=== PATIENT | male | born 1960 | race African-American/Black ===

== ENCOUNTER 2020-10-18 00:03 | Inpatient (IN) | payer MEDICARE ==
[~2020-10-18] VITALS: Ht 190.5 cm; Wt 226.3 kg
[2020-10-18 15:45] VITALS: BP 133/59
[2020-10-18 16:00] VITALS: BP 133/59
[2020-10-18 20:00] VITALS: BP 127/76
[2020-10-18] MEDS: ENOXAPARIN 40MG/0.4ML SYR SUBCUT SCH (20:33)
[2020-10-18] MEDS ORDERED: HYDRALAZINE 20MG/ML VIAL IV PRN (21:45)
[2020-10-18] MEDS ORDERED: DIPHENHYDRAMINE 50MG/ML VIAL IV PRN (21:45)
[2020-10-18] MEDS ORDERED: LORAZEPAM 2MG/ML CPJ IV PRN (21:45)
[2020-10-18] MEDS ORDERED: IPRATROPIUM/ALBUTEROL 0.5-3(2.5)MG/3ML NEB HHN PRN (21:45)
[2020-10-18] MEDS ORDERED: ONDANSETRON HCL 4MG/2ML INJ IV PRN (21:45)
[2020-10-18] MEDS ORDERED: MAGNESIUM/ALUMINUM HYDROXIDE/SIMETHICONE 30ML UDC PO PRN (21:45)
[2020-10-18] MEDS ORDERED: HYDROCODONE/ACETAMINOPHEN 5/325MG TABLET PO PRN (21:45)
[2020-10-18] MEDS ORDERED: GUAIFENESIN 200MG/10ML SUGAR FREE UDC PO PRN (21:45)
[2020-10-19] VITALS: BP 142/79
[2020-10-19] MEDS: CLONIDINE 0.1MG TABLET PO PRN ×3 (02:09→20:48)
[2020-10-19 04:00] VITALS: BP 144/54
[2020-10-19 07:23] LABS: BASOPHILS % 0.8 % (0.0-2.0); EOSINOPHILS % 3.9 % (0.0-5.0); HEMATOCRIT. 32.1 % (42.0-52.0); LYMPHOCYTES % 12.6 % (20.0-50.0); MEAN CORPUSCULAR HEMOGLOBIN 28.1 pg (28.0-32.0); MEAN CORPUSCULAR VOLUME 89.9 fL (80.0-94.0); MEAN PLATELET VOLUME 8.4 fl (7.4-10.4); MONOCYTES % 12.8 % (2.0-8.0); NEUTROPHILS % 69.9 % (40.0-76.0); PLATELET 382 x1000/uL (130-400); RED BLOOD CELL COUNT 3.57 mill/uL (4.7-6.1)
[2020-10-19 08:00] VITALS: BP 172/77
[2020-10-19 10:39] LABS: INR 1.1; PARTIAL THROMBOPLASTIN TIME 35.3 sec (23.4-31.0); PROTHROMBIN TIME 11.4 sec (9.6-11.0)
[2020-10-19 12:00] VITALS: BP 146/67
[2020-10-19 12:16] LABS: HEPATITIS B SURFACE AB < 3.1 mIU/mL
[2020-10-19 12:27] LABS: HEPATITIS B SURFACE ANTIGEN NEGATIVE
[2020-10-19] MEDS ORDERED: LIDOCAINE HCL 1% 20ML VIAL (Pyxis) INJ ONE (12:35)
[2020-10-19 12:56] LABS: HEPATITIS A AB IGM NEGATIVE (NEGATIVE)
[2020-10-19 16:00] VITALS: BP 142/74
[2020-10-19] MEDS: ENOXAPARIN 40MG/0.4ML SYR SUBCUT SCH (17:26)
[2020-10-19 20:00] VITALS: BP 179/69
[2020-10-20] VITALS: BP 165/69
[2020-10-20] MEDS: CLONIDINE 0.1MG TABLET PO PRN (02:55)
[2020-10-20 04:00] VITALS: BP 161/75
[2020-10-20 08:00] VITALS: BP 129/84
[2020-10-20 12:00] VITALS: BP 152/50
[2020-10-20 16:00] VITALS: BP 142/46
[2020-10-20] MEDS: ENOXAPARIN 40MG/0.4ML SYR SUBCUT SCH (18:42)
[2020-10-20 20:00] VITALS: BP 156/89
[2020-10-21] VITALS: BP 132/63
[2020-10-21 04:00] VITALS: BP 170/78
[2020-10-21 06:18] LABS: HEMATOCRIT. 29.6 % (42.0-52.0); HEMOGLOBIN. 9.5 g/dL (14.0-18.0); MEAN CORPUSCULAR HEMOGLOBIN 28.3 pg (28.0-32.0); MEAN CORPUSCULAR VOLUME 88.5 fL (80.0-94.0); MEAN PLATELET VOLUME 8.6 fl (7.4-10.4); PLATELET 308 x1000/uL (130-400); RED BLOOD CELL COUNT 3.35 mill/uL (4.7-6.1); RED CELL DISTRIBUTION WIDTH 14.3 % (11.6-14.6)
[2020-10-21 08:00] VITALS: BP 161/88
[2020-10-21 14:41] LABS: PLATELET ESTIMATE NORMAL
[2020-10-21 20:00] VITALS: BP 142/50
[2020-10-21] MEDS: ENOXAPARIN 40MG/0.4ML SYR SUBCUT SCH (20:10)
[2020-10-22] VITALS: BP 148/76
[2020-10-22 04:00] VITALS: BP 156/75
[2020-10-22] MEDS: CLONIDINE 0.1MG TABLET PO PRN (07:57)
[2020-10-22 08:00] VITALS: BP 206/75
[2020-10-22 12:00] VITALS: BP 167/68
[2020-10-22 16:00] VITALS: BP 135/85
[2020-10-22] MEDS: ENOXAPARIN 40MG/0.4ML SYR SUBCUT SCH (19:07)
[2020-10-22 20:00] VITALS: BP 157/73
[2020-10-23] VITALS: BP 163/67
[2020-10-23] MEDS: CLONIDINE 0.1MG TABLET PO PRN ×2 (02:11→21:00)
[2020-10-23 04:00] VITALS: BP 167/84
[2020-10-23] MEDS ORDERED: BACITRACIN 15GM TUBE TOP ONE (07:45)
[2020-10-23] MEDS ORDERED: HEPARIN SODIUM 1,000 UNIT/1ML VIAL IV ONE ×3 (07:45→10:36)
[2020-10-23] MEDS ORDERED: LIDOCAINE HCL 1% 20ML VIAL (Pyxis) INJ ONE ×2 (07:45→09:43)
[2020-10-23] MEDS ORDERED: BUPIVACAINE HCL 0.5% (5MG/ML) 50ML ONE (07:46)
[2020-10-23] MEDS ORDERED: POLYMYXIN B SULFATE 500000 UNITS/VIAL ONE (07:46)
[2020-10-23 08:00] VITALS: BP 149/80
[2020-10-23 08:39] LABS: HEMATOCRIT. 29.8 % (42.0-52.0); HEMOGLOBIN. 9.7 g/dL (14.0-18.0); MEAN CORPUSCULAR HEMOGLOBIN 28.7 pg (28.0-32.0); MEAN CORPUSCULAR VOLUME 87.9 fL (80.0-94.0); MEAN PLATELET VOLUME 8.3 fl (7.4-10.4); PLATELET 308 x1000/uL (130-400); RED BLOOD CELL COUNT 3.39 mill/uL (4.7-6.1); RED CELL DISTRIBUTION WIDTH 14.4 % (11.6-14.6)
[2020-10-23] MEDS ORDERED: FENTANYL CITRATE/PF 50MCG/ML 2ML VIAL ONE ×2 (09:38→10:27)
[2020-10-23] MEDS ORDERED: MIDAZOLAM HCL 2 MG/2 ML VIAL ONE ×4 (09:38→10:26)
[2020-10-23] MEDS ORDERED: CEFAZOLIN SODIUM 1000MG/VIAL ONE (10:28)
[2020-10-23 12:00] VITALS: BP 125/76
[2020-10-23 13:48] LABS: PLATELET ESTIMATE NORMAL
[2020-10-23 16:00] VITALS: BP 142/64
[2020-10-23] MEDS: ENOXAPARIN 40MG/0.4ML SYR SUBCUT SCH (18:25)
[2020-10-23] MEDS: AMLODIPINE 10MG TABLET PO SCH (18:25)
[2020-10-23 20:00] VITALS: BP 177/77
[2020-10-24] VITALS (9 sets, daily range): BP systolic 150–182; BP diastolic 59–85
[2020-10-24] MEDS: HYDRALAZINE 10 MG in SODIUM CHLORIDE 0.9% 49.5 ML IV PRN (04:52)
[2020-10-24] MEDS: CLONIDINE 0.1MG TABLET PO PRN (05:49)
[2020-10-24] MEDS: HYDRALAZINE HCL 25MG TABLET PO SCH ×2 (09:26→13:16)
[2020-10-24] MEDS: AMLODIPINE 10MG TABLET PO SCH (09:27)
[2020-10-24 11:39] LABS: BASOPHILS % 0.5 % (0.0-2.0); EOSINOPHILS % 2.4 % (0.0-5.0); HEMATOCRIT. 34.7 % (42.0-52.0); HEMOGLOBIN. 10.7 g/dL (14.0-18.0); MEAN CORPUSCULAR HEMOGLOBIN 28.5 pg (28.0-32.0); MEAN CORPUSCULAR VOLUME 92.3 fL (80.0-94.0); MEAN PLATELET VOLUME 7.9 fl (7.4-10.4); MONOCYTES % 9.3 % (2.0-8.0); NEUTROPHILS % 77.8 % (40.0-76.0); PLATELET 302 x1000/uL (130-400); RED BLOOD CELL COUNT 3.76 mill/uL (4.7-6.1); RED CELL DISTRIBUTION WIDTH 14.5 % (11.6-14.6)
[2020-10-24] MEDS ORDERED: HEPARIN SODIUM 1,000 UNIT/1ML VIAL IV ONE (16:00)
[2020-10-24] MEDS: ENOXAPARIN 40MG/0.4ML SYR SUBCUT SCH (18:27)
[2020-10-24 19:54] LABS: CLARITY URINE CLOUDY (CLEAR); COLOR URINE YELLOW (YELLOW); KETONES URINE NEGATIVE (NEGATIVE); LEUKOCYTE ESTERASE URINE 1+ (NEGATIVE); NITRITE URINE NEGATIVE (NEGATIVE); OCCULT BLOOD URINE 1+ (NEGATIVE); PH URINE 7.5 (4.5-8.0); PROTEIN URINE 4+ (NEGATIVE); SPECIFIC GRAVITY URINE 1.024 (1.005-1.030); UROBILINOGEN URINE 0.2 E.U./dL (0.2-1.0)
[2020-10-24] MEDS: HYDRALAZINE HCL 50MG TABLET PO SCH (22:04)
[2020-10-25] VITALS: BP 161/70
[2020-10-25 04:00] VITALS: BP 161/70
[2020-10-25] MEDS: HYDRALAZINE HCL 50MG TABLET PO SCH ×3 (06:20→21:26)
[2020-10-25 06:59] LABS: HEMATOCRIT. 30.7 % (42.0-52.0); HEMOGLOBIN. 9.7 g/dL (14.0-18.0); MEAN CORPUSCULAR HEMOGLOBIN 28.9 pg (28.0-32.0); MEAN CORPUSCULAR VOLUME 91.3 fL (80.0-94.0); MEAN PLATELET VOLUME 8.6 fl (7.4-10.4); PLATELET 239 x1000/uL (130-400); RED BLOOD CELL COUNT 3.36 mill/uL (4.7-6.1); RED CELL DISTRIBUTION WIDTH 14.5 % (11.6-14.6)
[2020-10-25 08:00] VITALS: BP 176/78
[2020-10-25] MEDS: AMLODIPINE 10MG TABLET PO SCH (09:18)
[2020-10-25] MEDS: CLONIDINE 0.1MG TABLET PO PRN ×2 (14:34→22:56)
[2020-10-25 14:53] LABS: PLATELET ESTIMATE NORMAL
[2020-10-25 16:00] VITALS: BP 165/75
[2020-10-25] MEDS: ENOXAPARIN 40MG/0.4ML SYR SUBCUT SCH (17:28)
[2020-10-25 20:55] VITALS: BP 165/64
[2020-10-26] VITALS: BP 176/73
[2020-10-26] MEDS: HYDRALAZINE 10 MG in SODIUM CHLORIDE 0.9% 49.5 ML IV PRN (00:13)
[2020-10-26 04:00] VITALS: BP 162/62
[2020-10-26] MEDS: HYDRALAZINE HCL 50MG TABLET PO SCH ×3 (05:57→22:40)
[2020-10-26 08:00] VITALS: BP 169/78
[2020-10-26] MEDS: AMLODIPINE 10MG TABLET PO SCH (08:42)
[2020-10-26 12:00] VITALS: BP 154/61
[2020-10-26 15:26] LABS: BASOPHILS % 0.8 % (0.0-2.0); EOSINOPHILS % 4.2 % (0.0-5.0); HEMATOCRIT. 31.2 % (42.0-52.0); HEMOGLOBIN. 10.2 g/dL (14.0-18.0); LYMPHOCYTES % 17.8 % (20.0-50.0); MEAN CORPUSCULAR HEMOGLOBIN 28.5 pg (28.0-32.0); MEAN CORPUSCULAR VOLUME 87.3 fL (80.0-94.0); MEAN PLATELET VOLUME 7.7 fl (7.4-10.4); MONOCYTES % 12.9 % (2.0-8.0); NEUTROPHILS % 64.3 % (40.0-76.0); PLATELET 301 x1000/uL (130-400); RED BLOOD CELL COUNT 3.58 mill/uL (4.7-6.1); RED CELL DISTRIBUTION WIDTH 13.6 % (11.6-14.6)
[2020-10-26 16:00] VITALS: BP 145/73
[2020-10-26] MEDS: ENOXAPARIN 40MG/0.4ML SYR SUBCUT SCH (18:10)
[2020-10-26 20:00] VITALS: BP 144/62
[2020-10-27] VITALS: BP 138/70
[2020-10-27 04:00] VITALS: BP 150/68
[2020-10-27] MEDS: HYDRALAZINE HCL 50MG TABLET PO SCH ×3 (06:03→21:19)
[2020-10-27 06:28] LABS: BASOPHILS % 0.6 % (0.0-2.0); EOSINOPHILS % 4.2 % (0.0-5.0); HEMATOCRIT. 32.8 % (42.0-52.0); HEMOGLOBIN. 10.4 g/dL (14.0-18.0); LYMPHOCYTES % 21.5 % (20.0-50.0); MEAN CORPUSCULAR HEMOGLOBIN 28.3 pg (28.0-32.0); MEAN CORPUSCULAR VOLUME 89.2 fL (80.0-94.0); MEAN PLATELET VOLUME 8.5 fl (7.4-10.4); NEUTROPHILS % 59.7 % (40.0-76.0); PLATELET 280 x1000/uL (130-400); RED BLOOD CELL COUNT 3.68 mill/uL (4.7-6.1); RED CELL DISTRIBUTION WIDTH 14.1 % (11.6-14.6)
[2020-10-27] MEDS: AMLODIPINE 10MG TABLET PO SCH (08:49)
[2020-10-27 12:00] VITALS: BP 122/74
[2020-10-27 16:00] VITALS: BP 158/63
[2020-10-27] MEDS: ENOXAPARIN 40MG/0.4ML SYR SUBCUT SCH (18:25)
[2020-10-27 20:00] VITALS: BP 158/56
[2020-10-28] VITALS: BP 162/68
[2020-10-28] MEDS: CLONIDINE 0.1MG TABLET PO PRN (00:10)
[2020-10-28 04:00] VITALS: BP 118/61
[2020-10-28 05:19] LABS: BASOPHILS % 1.1 % (0.0-2.0); EOSINOPHILS % 3.6 % (0.0-5.0); HEMATOCRIT. 28.7 % (42.0-52.0); HEMOGLOBIN. 9.2 g/dL (14.0-18.0); LYMPHOCYTES % 21.5 % (20.0-50.0); MEAN CORPUSCULAR HEMOGLOBIN 28.3 pg (28.0-32.0); MEAN CORPUSCULAR VOLUME 88.1 fL (80.0-94.0); MEAN PLATELET VOLUME 8.2 fl (7.4-10.4); MONOCYTES % 11.8 % (2.0-8.0); PLATELET 267 x1000/uL (130-400); RED BLOOD CELL COUNT 3.26 mill/uL (4.7-6.1)
[2020-10-28] MEDS: HYDRALAZINE HCL 50MG TABLET PO SCH ×3 (05:33→21:56)
[2020-10-28 08:00] VITALS: BP 152/64
[2020-10-28] MEDS: AMLODIPINE 10MG TABLET PO SCH (08:49)
[2020-10-28] MEDS ORDERED: MORPHINE SULFATE 4 MG/ML CPJ (NOT FOR IM USE) IV PRN (09:15)
[2020-10-28 12:00] VITALS: BP 123/69
[2020-10-28 16:00] VITALS: BP 159/54
[2020-10-28] MEDS: ENOXAPARIN 40MG/0.4ML SYR SUBCUT SCH (18:17)
[2020-10-28 20:00] VITALS: BP 146/60
[2020-10-29] VITALS: BP 155/71
[2020-10-29 04:00] VITALS: BP 147/70
[2020-10-29] MEDS: HYDRALAZINE HCL 50MG TABLET PO SCH ×3 (05:35→21:56)
[2020-10-29 08:00] VITALS: BP 156/69
[2020-10-29] MEDS: AMLODIPINE 10MG TABLET PO SCH (09:20)
[2020-10-29 09:50] LABS: BASOPHILS % 1.2 % (0.0-2.0); EOSINOPHILS % 3.8 % (0.0-5.0); HEMATOCRIT. 28.8 % (42.0-52.0); HEMOGLOBIN. 9.4 g/dL (14.0-18.0); LYMPHOCYTES % 23.5 % (20.0-50.0); MEAN CORPUSCULAR HEMOGLOBIN 28.3 pg (28.0-32.0); MEAN CORPUSCULAR VOLUME 87.2 fL (80.0-94.0); MEAN PLATELET VOLUME 7.8 fl (7.4-10.4); MONOCYTES % 12.7 % (2.0-8.0); NEUTROPHILS % 58.8 % (40.0-76.0); PLATELET 287 x1000/uL (130-400); RED CELL DISTRIBUTION WIDTH 13.9 % (11.6-14.6)
[2020-10-29 12:00] VITALS: BP 141/69
[2020-10-29 16:00] VITALS: BP 161/67
[2020-10-29] MEDS: CLONIDINE 0.1MG TABLET PO PRN (18:10)
[2020-10-29] MEDS: ENOXAPARIN 40MG/0.4ML SYR SUBCUT SCH (18:10)
[2020-10-29 20:00] VITALS: BP 160/60
[2020-10-29] MEDS: EPOETIN ALFA-EPBX 10,000 UNIT/ML VIAL SUBCUT SCH (21:56)
[2020-10-30] VITALS: BP 154/63
[2020-10-30 04:00] VITALS: BP 156/64
[2020-10-30] MEDS: HYDRALAZINE HCL 50MG TABLET PO SCH ×3 (06:27→22:58)
[2020-10-30 06:39] LABS: BASOPHILS % 0.6 % (0.0-2.0); EOSINOPHILS % 4.1 % (0.0-5.0); HEMATOCRIT. 28.6 % (42.0-52.0); HEMOGLOBIN. 9.3 g/dL (14.0-18.0); LYMPHOCYTES % 22.5 % (20.0-50.0); MEAN CORPUSCULAR HEMOGLOBIN 28.3 pg (28.0-32.0); MEAN CORPUSCULAR VOLUME 87.1 fL (80.0-94.0); MEAN PLATELET VOLUME 8.2 fl (7.4-10.4); MONOCYTES % 12.6 % (2.0-8.0); NEUTROPHILS % 60.2 % (40.0-76.0); PLATELET 300 x1000/uL (130-400); RED BLOOD CELL COUNT 3.28 mill/uL (4.7-6.1); RED CELL DISTRIBUTION WIDTH 13.9 % (11.6-14.6)
[2020-10-30 08:00] VITALS: BP 150/60
[2020-10-30] MEDS: AMLODIPINE 10MG TABLET PO SCH (09:00)
[2020-10-30 12:00] VITALS: BP 157/59
[2020-10-30 16:00] VITALS: BP 144/62
[2020-10-30] MEDS ORDERED: HEPARIN SODIUM 1,000 UNIT/1ML VIAL IV NR (17:00)
[2020-10-30] MEDS: ENOXAPARIN 40MG/0.4ML SYR SUBCUT SCH (18:02)
[2020-10-30 20:00] VITALS: BP 156/60
[2020-10-31 04:00] VITALS: BP 131/63
[2020-10-31] MEDS: HYDRALAZINE HCL 50MG TABLET PO SCH (06:16)
[2020-10-31 08:00] VITALS: BP 152/65
[2020-10-31] MEDS: AMLODIPINE 10MG TABLET PO SCH (10:04)
[2020-10-31] MEDS: DOCUSATE SODIUM 100MG CAPSULE PO PRN (10:04)
[2020-10-31] MEDS ORDERED: HYDRALAZINE HCL 50MG TABLET PO NR (11:30)
[2020-10-31 12:02] VITALS: BP 154/67
[2020-10-31 16:00] VITALS: BP 100/73
[2020-10-31 16:45] VITALS: BP 151/63
[2020-10-31] MEDS: HYDRALAZINE HCL 100MG TABLET PO SCH (17:34)
[2020-10-31] MEDS: ENOXAPARIN 40MG/0.4ML SYR SUBCUT SCH (17:34)
[2020-10-31 20:00] VITALS: BP 145/61
[2020-10-31] MEDS: EPOETIN ALFA-EPBX 10,000 UNIT/ML VIAL SUBCUT SCH (23:42)
[2020-11-01] VITALS: BP 148/66
[2020-11-01 04:00] VITALS: BP 139/65
[2020-11-01] MEDS: DOCUSATE SODIUM 100MG CAPSULE PO PRN ×2 (06:00→18:04)
[2020-11-01 07:25] LABS: BASOPHILS % 0.7 % (0.0-2.0); EOSINOPHILS % 4.1 % (0.0-5.0); HEMATOCRIT. 29.3 % (42.0-52.0); HEMOGLOBIN. 9.7 g/dL (14.0-18.0); LYMPHOCYTES % 23.6 % (20.0-50.0); MEAN CORPUSCULAR VOLUME 87.4 fL (80.0-94.0); MONOCYTES % 10.9 % (2.0-8.0); NEUTROPHILS % 60.7 % (40.0-76.0); PLATELET 319 x1000/uL (130-400); RED BLOOD CELL COUNT 3.35 mill/uL (4.7-6.1); RED CELL DISTRIBUTION WIDTH 14.2 % (11.6-14.6)
[2020-11-01 08:00] VITALS: BP 168/72
[2020-11-01] MEDS: HYDRALAZINE HCL 100MG TABLET PO SCH ×2 (08:43→18:04)
[2020-11-01] MEDS: AMLODIPINE 10MG TABLET PO SCH (08:43)
[2020-11-01 12:00] VITALS: BP 151/79
[2020-11-01 16:00] VITALS: BP 158/67
[2020-11-01] MEDS: ENOXAPARIN 40MG/0.4ML SYR SUBCUT SCH (18:04)
[2020-11-01 20:00] VITALS: BP 160/65
[2020-11-02] VITALS: BP 158/60
[2020-11-02 04:00] VITALS: BP 155/63
[2020-11-02] MEDS: AMLODIPINE 10MG TABLET PO SCH (09:49)
[2020-11-02] MEDS: HYDRALAZINE HCL 100MG TABLET PO SCH ×2 (09:50→17:16)
[2020-11-02] MEDS: ENOXAPARIN 40MG/0.4ML SYR SUBCUT SCH (17:21)
[2020-11-02] MEDS: DOCUSATE SODIUM 100MG CAPSULE PO PRN (17:23)
[2020-11-02 20:00] VITALS: BP 138/57
[2020-11-02] MEDS: EPOETIN ALFA-EPBX 10,000 UNIT/ML VIAL SUBCUT SCH (21:35)
[2020-11-02] MEDS: CLONIDINE 0.1MG TABLET PO PRN (23:37)
[2020-11-03] VITALS: BP 163/71
[2020-11-03 04:00] VITALS: BP 159/75
[2020-11-03 08:00] VITALS: BP 149/79
[2020-11-03 08:17] LABS: BASOPHILS % 1.2 % (0.0-2.0); EOSINOPHILS % 5.1 % (0.0-5.0); HEMATOCRIT. 29.2 % (42.0-52.0); HEMOGLOBIN. 9.7 g/dL (14.0-18.0); LYMPHOCYTES % 21.5 % (20.0-50.0); MEAN CORPUSCULAR HEMOGLOBIN 28.7 pg (28.0-32.0); MEAN CORPUSCULAR VOLUME 86.5 fL (80.0-94.0); MEAN PLATELET VOLUME 7.3 fl (7.4-10.4); NEUTROPHILS % 59.2 % (40.0-76.0); PLATELET 355 x1000/uL (130-400); RED BLOOD CELL COUNT 3.37 mill/uL (4.7-6.1)
[2020-11-03] MEDS: HYDRALAZINE HCL 100MG TABLET PO SCH ×2 (09:00→17:00)
[2020-11-03] MEDS: AMLODIPINE 10MG TABLET PO SCH (09:00)
[2020-11-03 16:00] VITALS: BP 128/80
[2020-11-03] MEDS: CLONIDINE 0.1MG TABLET PO SCH ×2 (18:00→21:45)
[2020-11-03] MEDS: ENOXAPARIN 40MG/0.4ML SYR SUBCUT SCH (19:01)
[2020-11-03 20:00] VITALS: BP 106/67
[2020-11-04] VITALS: BP 157/71
[2020-11-04] MEDS: ACETAMINOPHEN 325MG TABLET PO PRN (03:30)
[2020-11-04 04:00] VITALS: BP 124/61
[2020-11-04] MEDS: CLONIDINE 0.1MG TABLET PO SCH ×3 (06:24→21:54)
[2020-11-04 08:00] VITALS: BP 130/58
[2020-11-04] MEDS: HYDRALAZINE HCL 100MG TABLET PO SCH ×2 (09:25→18:11)
[2020-11-04] MEDS: AMLODIPINE 10MG TABLET PO SCH (09:25)
[2020-11-04 09:31] LABS: EOSINOPHILS % 6.4 % (0.0-5.0); HEMATOCRIT. 30.1 % (42.0-52.0); HEMOGLOBIN. 9.9 g/dL (14.0-18.0); LYMPHOCYTES % 21.8 % (20.0-50.0); MEAN CORPUSCULAR VOLUME 88.2 fL (80.0-94.0); MEAN PLATELET VOLUME 8.4 fl (7.4-10.4); MONOCYTES % 12.5 % (2.0-8.0); NEUTROPHILS % 58.3 % (40.0-76.0); PLATELET 350 x1000/uL (130-400); RED BLOOD CELL COUNT 3.42 mill/uL (4.7-6.1); RED CELL DISTRIBUTION WIDTH 14.5 % (11.6-14.6)
[2020-11-04 12:00] VITALS: BP 146/60
[2020-11-04 16:00] VITALS: BP 164/69
[2020-11-04] MEDS: ENOXAPARIN 40MG/0.4ML SYR SUBCUT SCH (18:15)
[2020-11-04 20:00] VITALS: BP 138/59
[2020-11-05] VITALS: BP 142/69
[2020-11-05 04:00] VITALS: BP 146/61
[2020-11-05] MEDS: CLONIDINE 0.1MG TABLET PO SCH ×3 (06:38→22:00)
[2020-11-05 08:00] VITALS: BP 128/57
[2020-11-05] MEDS: HYDRALAZINE HCL 100MG TABLET PO SCH ×2 (09:52→17:41)
[2020-11-05] MEDS: AMLODIPINE 10MG TABLET PO SCH (09:53)
[2020-11-05 12:00] VITALS: BP 134/60
[2020-11-05 12:21] LABS: BASOPHILS % 1.1 % (0.0-2.0); EOSINOPHILS % 6.4 % (0.0-5.0); HEMATOCRIT. 31.3 % (42.0-52.0); HEMOGLOBIN. 10.1 g/dL (14.0-18.0); LYMPHOCYTES % 19.8 % (20.0-50.0); MEAN CORPUSCULAR HEMOGLOBIN 28.5 pg (28.0-32.0); MEAN CORPUSCULAR VOLUME 88.1 fL (80.0-94.0); MEAN PLATELET VOLUME 7.9 fl (7.4-10.4); MONOCYTES % 10.4 % (2.0-8.0); NEUTROPHILS % 62.3 % (40.0-76.0); PLATELET 387 x1000/uL (130-400); RED BLOOD CELL COUNT 3.55 mill/uL (4.7-6.1); RED CELL DISTRIBUTION WIDTH 14.5 % (11.6-14.6)
[2020-11-05 16:00] VITALS: BP 135/56
[2020-11-05] MEDS: ENOXAPARIN 40MG/0.4ML SYR SUBCUT SCH (17:41)
[2020-11-05 20:00] VITALS: BP 124/53
[2020-11-06] VITALS: BP 104/67
[2020-11-06 04:00] VITALS: BP 138/78
[2020-11-06] MEDS: CLONIDINE 0.1MG TABLET PO SCH ×3 (06:00→22:00)
[2020-11-06 06:39] LABS: BASOPHILS % 0.8 % (0.0-2.0); EOSINOPHILS % 4.3 % (0.0-5.0); HEMATOCRIT. 31.7 % (42.0-52.0); HEMOGLOBIN. 10.1 g/dL (14.0-18.0); LYMPHOCYTES % 18.2 % (20.0-50.0); MEAN CORPUSCULAR HEMOGLOBIN 28.5 pg (28.0-32.0); MEAN CORPUSCULAR VOLUME 89.2 fL (80.0-94.0); MEAN PLATELET VOLUME 8.1 fl (7.4-10.4); MONOCYTES % 10.9 % (2.0-8.0); NEUTROPHILS % 65.8 % (40.0-76.0); PLATELET 355 x1000/uL (130-400); RED BLOOD CELL COUNT 3.56 mill/uL (4.7-6.1); RED CELL DISTRIBUTION WIDTH 14.5 % (11.6-14.6)
[2020-11-06 08:00] VITALS: BP 132/61
[2020-11-06] MEDS: AMLODIPINE 10MG TABLET PO SCH (08:52)
[2020-11-06] MEDS: HYDRALAZINE HCL 100MG TABLET PO SCH ×2 (08:52→17:00)
[2020-11-06 12:00] VITALS: BP 108/50
[2020-11-06 16:00] VITALS: BP 121/53
[2020-11-06] MEDS: ENOXAPARIN 40MG/0.4ML SYR SUBCUT SCH (18:51)
[2020-11-06 20:00] VITALS: BP 148/58
[2020-11-06] MEDS ORDERED: HEPARIN SODIUM 1,000 UNIT/1ML VIAL IV NR (21:15)
[2020-11-06] MEDS: DOCUSATE SODIUM 100MG CAPSULE PO PRN (23:12)
[2020-11-07] VITALS: BP 128/77
[2020-11-07 04:00] VITALS: BP 151/70
[2020-11-07] MEDS: CLONIDINE 0.1MG TABLET PO SCH ×3 (06:29→22:00)
[2020-11-07 08:00] VITALS: BP 136/60
[2020-11-07] MEDS: AMLODIPINE 10MG TABLET PO SCH (09:46)
[2020-11-07] MEDS: HYDRALAZINE HCL 100MG TABLET PO SCH ×2 (09:46→17:13)
[2020-11-07 12:00] VITALS: BP 115/48
[2020-11-07] MEDS: ACETAMINOPHEN 325MG TABLET PO PRN (13:30)
[2020-11-07 16:00] VITALS: BP 116/50
[2020-11-07] MEDS: ENOXAPARIN 40MG/0.4ML SYR SUBCUT SCH (17:14)
[2020-11-07 20:00] VITALS: BP 117/53
[2020-11-07] MEDS: DOCUSATE SODIUM 100MG CAPSULE PO PRN (22:27)
[2020-11-08] VITALS (8 sets, daily range): BP systolic 122–161; BP diastolic 58–70
[2020-11-08] MEDS: CLONIDINE 0.1MG TABLET PO SCH ×2 (05:37→19:13)
[2020-11-08 07:20] LABS: BASOPHILS % 0.6 % (0.0-2.0); EOSINOPHILS % 7.1 % (0.0-5.0); HEMATOCRIT. 32.1 % (42.0-52.0); HEMOGLOBIN. 10.3 g/dL (14.0-18.0); LYMPHOCYTES % 18.5 % (20.0-50.0); MEAN CORPUSCULAR HEMOGLOBIN 28.4 pg (28.0-32.0); MEAN CORPUSCULAR VOLUME 88.2 fL (80.0-94.0); MEAN PLATELET VOLUME 7.5 fl (7.4-10.4); MONOCYTES % 11.7 % (2.0-8.0); NEUTROPHILS % 62.1 % (40.0-76.0); PLATELET 366 x1000/uL (130-400); RED BLOOD CELL COUNT 3.64 mill/uL (4.7-6.1); RED CELL DISTRIBUTION WIDTH 14.5 % (11.6-14.6)
[2020-11-08] MEDS: HYDRALAZINE HCL 100MG TABLET PO SCH ×2 (09:00→17:54)
[2020-11-08] MEDS: AMLODIPINE 10MG TABLET PO SCH (09:00)
[2020-11-08] MEDS: ENOXAPARIN 40MG/0.4ML SYR SUBCUT SCH (17:55)
== END 2020-11-08 20:49 | DRG 299 ==
LOC: ER 00:03 → 6EST 11:35 → EDBEDREQTM 11:46 → EDBEDREQSVC 11:46 → EDBEDREQ 11:46 → EDBEDREQSVC 11:55 → EDBEDREQ 12:52 → ENRESERV 14:58 → 6EST 10-26 00:12
PROVIDERS: ADMIT Internal Medicine; ATTEND Internal Medicine
PROC: B548ZZA Ultrasonography of Superior Vena Cava, Guidance (ICD-10-PCS; 2020-10-19)
PROC: 02HV33Z Insertion of Infusion Device into Superior Vena Cava, Percutaneous Approach (ICD-10-PCS; 2020-10-19)
PROC: 5A1D70Z Performance of Urinary Filtration, Intermittent, Less than 6 Hours Per Day (ICD-10-PCS; 2020-10-19)
PROC: 5A1D70Z Performance of Urinary Filtration, Intermittent, Less than 6 Hours Per Day (ICD-10-PCS; 2020-10-20)
PROC: 5A1D70Z Performance of Urinary Filtration, Intermittent, Less than 6 Hours Per Day (ICD-10-PCS; 2020-10-21)
PROC: 0JH63XZ Insertion of Tunneled Vascular Access Device into Chest Subcutaneous Tissue and Fascia, Percutaneous Approach (ICD-10-PCS; principal; 2020-10-23)
PROC: 02H633Z Insertion of Infusion Device into Right Atrium, Percutaneous Approach (ICD-10-PCS; 2020-10-23)
PROC: B5181ZA Fluoroscopy of Superior Vena Cava using Low Osmolar Contrast, Guidance (ICD-10-PCS; 2020-10-23)
PROC: 5A1D70Z Performance of Urinary Filtration, Intermittent, Less than 6 Hours Per Day (ICD-10-PCS; 2020-10-23)
PROC: 5A1D70Z Performance of Urinary Filtration, Intermittent, Less than 6 Hours Per Day (ICD-10-PCS; 2020-10-24)
PROC: 5A1D70Z Performance of Urinary Filtration, Intermittent, Less than 6 Hours Per Day (ICD-10-PCS; 2020-10-26)
PROC: 5A1D70Z Performance of Urinary Filtration, Intermittent, Less than 6 Hours Per Day (ICD-10-PCS; 2020-10-28)
PROC: 5A1D70Z Performance of Urinary Filtration, Intermittent, Less than 6 Hours Per Day (ICD-10-PCS; 2020-10-29)
PROC: 5A1D70Z Performance of Urinary Filtration, Intermittent, Less than 6 Hours Per Day (ICD-10-PCS; 2020-11-01)
PROC: 5A1D70Z Performance of Urinary Filtration, Intermittent, Less than 6 Hours Per Day (ICD-10-PCS; 2020-11-03)
PROC: 5A1D70Z Performance of Urinary Filtration, Intermittent, Less than 6 Hours Per Day (ICD-10-PCS; 2020-11-06)
PROC: 5A1D70Z Performance of Urinary Filtration, Intermittent, Less than 6 Hours Per Day (ICD-10-PCS; 2020-11-08)
DX: E11.51 Type 2 diabetes mellitus with diabetic peripheral angiopathy without gangrene (principal); J96.00 Acute respiratory failure, unspecified whether with hypoxia or hypercapnia; N18.6 End stage renal disease; I13.2 Hypertensive heart and chronic kidney disease with heart failure and with stage 5 chronic kidney disease, or end stage renal disease; E46 Unspecified protein-calorie malnutrition; N17.9 Acute kidney failure, unspecified; R65.10 Systemic inflammatory response syndrome (SIRS) of non-infectious origin without acute organ dysfunction; L97.909 Non-pressure chronic ulcer of unspecified part of unspecified lower leg with unspecified severity; I87.313 Chronic venous hypertension (idiopathic) with ulcer of bilateral lower extremity; Z68.44 Body mass index [BMI] 60.0-69.9, adult; N39.0 Urinary tract infection, site not specified; E11.622 Type 2 diabetes mellitus with other skin ulcer; I50.9 Heart failure, unspecified; R26.81 Unsteadiness on feet; E11.22 Type 2 diabetes mellitus with diabetic chronic kidney disease; E66.01 Morbid (severe) obesity due to excess calories; G89.29 Other chronic pain; I87.2 Venous insufficiency (chronic) (peripheral); I87.8 Other specified disorders of veins; M54.9 Dorsalgia, unspecified; Z20.822 Contact with and (suspected) exposure to COVID-19; D64.9 Anemia, unspecified; E78.5 Hyperlipidemia, unspecified; M48.00 Spinal stenosis, site unspecified; Z99.2 Dependence on renal dialysis; M25.552 Pain in left hip
CPT/HCPCS: 36415; 36556; 71045; 76000; 76937; 80048; 81003; 83880; 84443; 84484; 85025; 86705; 86706; 86709; 86803; 87340; 87426; 88300; 93005; 97022; 97110; 97116; 97162; 97530; 99285; C1752; C1769; C1887; J0360; J0690; J0885; J1642; J1644; J1650; J2250; J3010; J3490; U0003

== ENCOUNTER 2024-11-03 09:09 | Inpatient (IN) | payer MEDICAID, MEDICARE ==
[~2024-11-03] VITALS: Ht 182.9 cm; Wt 168.5 kg
[2024-11-03] VITALS (10 sets, daily range): BP systolic 104–174; BP diastolic 58–78; PULSE 62–98; RESP 18–21; TEMP 36.6696–36.9; O2SAT 93–100
[2024-11-03 09:46] LABS: BASOPHILS % 1.1 % (0.0-2.0); EOSINOPHILS % 1.6 % (0.0-5.0); HEMATOCRIT. 34.2 % (42.0-52.0); HEMOGLOBIN. 11.3 g/dL (14.0-18.0); LYMPHOCYTES % 10.8 % (20.0-50.0); MEAN CORPUSCULAR HEMOGLOBIN 31.5 pg (28.0-32.0); MEAN CORPUSCULAR VOLUME 95.4 fL (80.0-94.0); MEAN PLATELET VOLUME 6.7 fl (7.4-10.4); NEUTROPHILS % 75.5 % (40.0-76.0); PLATELET 351 x1000/uL (130-400); RED BLOOD CELL COUNT 3.58 mill/uL (4.7-6.1); RED CELL DISTRIBUTION WIDTH 18.3 % (11.6-14.6); WHITE BLOOD COUNT 10.3 x1000/uL (4.5-11.0)
[2024-11-03 09:54] LABS: CHLORIDE 104 mEq/L (98-107); SODIUM 141 mEq/L (136-145)
[2024-11-03 09:56] LABS: CALCIUM 8.5 mg/dL (8.7-10.4); CARBON DIOXIDE 19 mEq/L (21-32)
[2024-11-03 10:00] LABS: GLUCOSE 132 mg/dL (70-105)
[2024-11-03 10:02] LABS: TROPONIN I HIGH SENSITIVITY 18 ng/L (3.0-53)
[2024-11-03 10:26] LABS: CREATININE 17.7 mg/dL (0.6-1.3); POTASSIUM 6.5 mEq/L (3.5-5.1); UREA NITROGEN BLOOD 130 mg/dL (9-23)
[2024-11-03] MEDS: INSULIN REGULAR (HUMULIN R) 1000UNITS/10ML VIAL IV ONE (11:08)
[2024-11-03] MEDS: CALCIUM CHLORIDE 1GM/10ML SYR IV ONE (11:08)
[2024-11-03] MEDS: DEXTROSE 50% WATER 50ML SYRINGE IV ONE (11:09)
[2024-11-03] MEDS: SODIUM BICARBONATE 8.4% 50MEQ/50ML SYR IV ONE (11:09)
[2024-11-03] MEDS: FUROSEMIDE 100MG/10ML VIAL IV STA (11:09)
[2024-11-03] MEDS: ALBUTEROL (0.083%) 2.5MG/3ML NEB HHN ONE (11:15)
[2024-11-03 12:25] LABS: HEPATITIS B SURFACE ANTIGEN NEGATIVE (Negative)
[2024-11-03] MEDS ORDERED: IPRATROPIUM/ALBUTEROL 0.5-3(2.5)MG/3ML NEB HHN PRN (12:45)
[2024-11-03] MEDS ORDERED: ONDANSETRON HCL 4MG/2ML INJ IV PRN (12:45)
[2024-11-03 12:46] LABS: HEPATITIS A AB IGM NEGATIVE (Negative)
[2024-11-03 12:47] LABS: HEPATITIS B CORE AB IGM NEGATIVE (Negative); HEPATITIS C AB NON REACTIVE (Neg) (Negative)
[2024-11-03] MEDS: ENOXAPARIN 40MG/0.4ML SYR SUBCUT SCH (13:00)
[2024-11-03] MEDS: ACETAMINOPHEN 325MG TABLET PO PRN (17:12)
[2024-11-03] MEDS: CLONIDINE 0.1MG TABLET PO PRN (21:01)
[2024-11-03] MEDS: TRAMADOL 50MG TABLET PO PRN (21:02)
[2024-11-04 03:57] VITALS: BP 111/61; PULSE 67; RESP 19; TEMP 36.6; O2SAT 96
[2024-11-04 08:00] VITALS: BP 126/70; PULSE 63; RESP 20; TEMP 36.4; O2SAT 100
[2024-11-04] MEDS: PANTOPRAZOLE SODIUM 40 MG/VIAL IV SCH (09:26)
[2024-11-04 12:00] VITALS: BP 111/67; PULSE 65; RESP 20; TEMP 36.6; O2SAT 100
[2024-11-04 16:00] VITALS: BP 106/55; PULSE 67; RESP 18; TEMP 36.8; O2SAT 100
[2024-11-04 20:00] VITALS: BP 110/59; PULSE 77; RESP 20; TEMP 36.4; O2SAT 100
[2024-11-05] VITALS (16 sets, daily range): BP systolic 76–130; BP diastolic 34–71; PULSE 57–77; RESP 18–20; TEMP 36.4–37.2; O2SAT 97–100
[2024-11-05] MEDS ORDERED: HEPARIN SODIUM 1,000 UNIT/1ML VIAL IV SCH (11:00)
[2024-11-05 12:23] LABS: BASOPHILS % 0.8 % (0.0-2.0); EOSINOPHILS % 3.1 % (0.0-5.0); HEMATOCRIT. 27.4 % (42.0-52.0); HEMOGLOBIN. 9.2 g/dL (14.0-18.0); LYMPHOCYTES % 12.3 % (20.0-50.0); MEAN CORPUSCULAR HEMOGLOBIN 31.6 pg (28.0-32.0); MEAN CORPUSCULAR HGB CONC 33.7 g/dL (31.0-37.0); MEAN CORPUSCULAR VOLUME 93.9 fL (80.0-94.0); MEAN PLATELET VOLUME 6.6 fl (7.4-10.4); MONOCYTES % 9.1 % (2.0-8.0); NEUTROPHILS % 74.7 % (40.0-76.0); PLATELET 218 x1000/uL (130-400); RED BLOOD CELL COUNT 2.92 mill/uL (4.7-6.1); RED CELL DISTRIBUTION WIDTH 18.4 % (11.6-14.6); WHITE BLOOD COUNT 9.6 x1000/uL (4.5-11.0)
[2024-11-05 12:46] LABS: CARBON DIOXIDE 25 mEq/L (21-32); CHLORIDE 103 mEq/L (98-107); POTASSIUM 4.3 mEq/L (3.5-5.1); SODIUM 142 mEq/L (136-145)
[2024-11-05 12:47] LABS: CALCIUM 7.4 mg/dL (8.7-10.4)
[2024-11-05 12:51] LABS: GLUCOSE 135 mg/dL (70-105); IRON 35 ug/dL (65-175)
[2024-11-05 12:52] LABS: UREA NITROGEN BLOOD 68 mg/dL (9-23)
[2024-11-05 12:54] LABS: PHOSPHORUS 3.1 mg/dL (2.5-4.9); TOTAL IRON BINDING CAPACITY 360 ug/dl (250-425)
[2024-11-05 12:59] LABS: CREATININE 10.8 mg/dL (0.6-1.3)
[2024-11-05] MEDS: FERROUS SULFATE 325MG TABLET PO SCH (18:34)
[2024-11-06] VITALS (15 sets, daily range): BP systolic 80–118; BP diastolic 30–84; PULSE 71–80; RESP 18–20; TEMP 36.3–36.72516; O2SAT 97–100
[2024-11-06 06:12] LABS: CHLORIDE 102 mEq/L (98-107); SODIUM 138 mEq/L (136-145)
[2024-11-06 06:13] LABS: BASOPHILS % 0.7 % (0.0-2.0); CARBON DIOXIDE 17 mEq/L (21-32); EOSINOPHILS % 2.8 % (0.0-5.0); HEMATOCRIT. 30.5 % (42.0-52.0); HEMOGLOBIN. 10.3 g/dL (14.0-18.0); LYMPHOCYTES % 13.5 % (20.0-50.0); MEAN CORPUSCULAR HEMOGLOBIN 31.5 pg (28.0-32.0); MEAN CORPUSCULAR HGB CONC 33.7 g/dL (31.0-37.0); MEAN CORPUSCULAR VOLUME 93.5 fL (80.0-94.0); MEAN PLATELET VOLUME 7.4 fl (7.4-10.4); MONOCYTES % 12.3 % (2.0-8.0); NEUTROPHILS % 70.7 % (40.0-76.0); PLATELET 254 x1000/uL (130-400); RED BLOOD CELL COUNT 3.26 mill/uL (4.7-6.1); RED CELL DISTRIBUTION WIDTH 18.2 % (11.6-14.6); WHITE BLOOD COUNT 9.6 x1000/uL (4.5-11.0)
[2024-11-06 06:14] LABS: CALCIUM 7.7 mg/dL (8.7-10.4)
[2024-11-06 06:18] LABS: GLUCOSE 92 mg/dL (70-105)
[2024-11-06 06:21] LABS: PHOSPHORUS 5.9 mg/dL (2.5-4.9)
[2024-11-06 06:37] LABS: CREATININE 18.3 mg/dL (0.6-1.3); UREA NITROGEN BLOOD 115 mg/dL (9-23)
[2024-11-06 07:54] LABS: POTASSIUM 7.3 mEq/L (3.5-5.1)
[2024-11-06] MEDS ORDERED: ALBUTEROL (0.083%) 2.5MG/3ML NEB HHN NR (08:15)
[2024-11-06] MEDS: SODIUM BICARBONATE 8.4% 50MEQ/50ML SYR IV NR (09:27)
[2024-11-06] MEDS: CALCIUM GLUCONATE 100MG/ML 10ML VIAL IV NR (09:28)
[2024-11-06] MEDS: SODIUM ZIRCONIUM CYCLOSILICATE 10GM/PACKET PO NR (09:29)
[2024-11-06 18:21] LABS: T4 FREE 1.32 ng/dL (0.89-1.76); THYROID STIMULATING HORMONE 2.06 uIU/mL (0.55-4.78)
[2024-11-06 18:22] LABS: FOLIC ACID (FOLATE) SERUM > 20.00 ng/mL (>5.38); VITAMIN B12 SERUM 1044 pg/mL (211-911)
[2024-11-06 19:50] LABS: POTASSIUM 5.7 mEq/L (3.5-5.1)
[2024-11-06 19:51] LABS: CALCIUM 7.6 mg/dL (8.7-10.4)
[2024-11-06 20:31] LABS: CREATININE 16.3 mg/dL (0.6-1.3)
[2024-11-07] VITALS (13 sets, daily range): BP systolic 83–133; BP diastolic 49–71; PULSE 69–88; RESP 18–22; TEMP 36.1–36.9; O2SAT 97–100
[2024-11-07] MEDS ORDERED: HEPARIN SODIUM 1,000 UNIT/1ML VIAL IV PRN (08:30)
[2024-11-07 21:29] LABS: BASOPHILS % 0.8 % (0.0-2.0); EOSINOPHILS % 2.5 % (0.0-5.0); HEMOGLOBIN. 10.1 g/dL (14.0-18.0); MEAN CORPUSCULAR HEMOGLOBIN 31.7 pg (28.0-32.0); MEAN CORPUSCULAR HGB CONC 33.8 g/dL (31.0-37.0); MEAN CORPUSCULAR VOLUME 93.8 fL (80.0-94.0); MEAN PLATELET VOLUME 7.7 fl (7.4-10.4); MONOCYTES % 14.1 % (2.0-8.0); NEUTROPHILS % 70.6 % (40.0-76.0); PLATELET 261 x1000/uL (130-400); RED CELL DISTRIBUTION WIDTH 17.5 % (11.6-14.6); WHITE BLOOD COUNT 9.8 x1000/uL (4.5-11.0)
[2024-11-07 21:46] LABS: CHLORIDE 101 mEq/L (98-107); POTASSIUM 5.3 mEq/L (3.5-5.1); SODIUM 141 mEq/L (136-145)
[2024-11-07 21:47] LABS: CALCIUM 7.5 mg/dL (8.7-10.4); CARBON DIOXIDE 23 mEq/L (21-32)
[2024-11-07 21:52] LABS: GLUCOSE 206 mg/dL (70-105)
[2024-11-07 21:53] LABS: UREA NITROGEN BLOOD 85 mg/dL (9-23)
[2024-11-07 21:54] LABS: PHOSPHORUS 5.8 mg/dL (2.5-4.9)
[2024-11-07 21:57] LABS: CREATININE 14.5 mg/dL (0.6-1.3)
[2024-11-08] VITALS: BP 114/77; PULSE 79; RESP 21; TEMP 36.8; O2SAT 97
[2024-11-08 04:00] VITALS: BP 106/50; PULSE 74; RESP 21; TEMP 36.6; O2SAT 96
[2024-11-08 08:00] VITALS: BP 78/36; PULSE 76; RESP 18; TEMP 36.2; O2SAT 95
[2024-11-08] MEDS: PANTOPRAZOLE 40MG DR TABLET PO SCH (08:51)
[2024-11-08] MEDS ORDERED: LORAZEPAM 2MG/ML INJ IV PRN (16:15)
[2024-11-08] MEDS ORDERED: LORAZEPAM 2MG/ML UD SYRINGE IV PRN (16:15)
[2024-11-08] MEDS: TRAMADOL 50MG TABLET PO PRN (16:21)
[2024-11-08] MEDS: CEFAZOLIN 1000MG PREMIX 50ML IV SCH (16:42)
[2024-11-08 20:00] VITALS: BP 98/55; PULSE 76; RESP 18; TEMP 36.6; O2SAT 97
[2024-11-08] MEDS ORDERED: CEFAZOLIN SODIUM 1000MG/VIAL IV SCH (22:00)
[2024-11-09] VITALS (16 sets, daily range): BP systolic 117–153; BP diastolic 62–82; PULSE 64–101; RESP 16–21; TEMP 36.2–36.7; O2SAT 95–100
[2024-11-09 11:28] LABS: CHLORIDE 99 mEq/L (98-107); SODIUM 137 mEq/L (136-145)
[2024-11-09 11:29] LABS: CALCIUM 7.4 mg/dL (8.7-10.4); CARBON DIOXIDE 27 mEq/L (21-32)
[2024-11-09 11:34] LABS: GLUCOSE 130 mg/dL (70-105); UREA NITROGEN BLOOD 41 mg/dL (9-23)
[2024-11-09 11:36] LABS: PHOSPHORUS 3.1 mg/dL (2.5-4.9)
[2024-11-09 12:03] LABS: HEMATOCRIT 29.8 % (42.0-52.0); HEMOGLOBIN 9.8 g/dL (14.0-18.0); MEAN CORPUSCULAR HEMOGLOBIN 30.9 pg (28.0-32.0); MEAN CORPUSCULAR HGB CONC 32.8 g/dL (31.0-37.0); MEAN CORPUSCULAR VOLUME 94.1 fL (80.0-94.0); PLATELET 236 x1000/uL (130-400); RED BLOOD CELL COUNT 3.17 mill/uL (4.7-6.1); RED CELL DISTRIBUTION WIDTH 17.1 % (11.6-14.6); WHITE BLOOD COUNT 9.8 x1000/uL (4.5-11.0)
[2024-11-09 12:19] LABS: CREATININE 7.8 mg/dL (0.6-1.3)
[2024-11-09 12:21] LABS: POTASSIUM 2.7 mEq/L (3.5-5.1)
[2024-11-09 18:58] LABS: POTASSIUM 5.8 mEq/L (3.5-5.1)
[2024-11-09] MEDS: SODIUM POLYSTYRENE SULFONATE 15 G/60 ML BOT PO NR (20:17)
[2024-11-10] VITALS: BP 105/50; PULSE 73; RESP 20; TEMP 36.4; O2SAT 99
[2024-11-10 04:00] VITALS: BP_SYST 81; BP_SYST 96; BP_DIAS 40; BP_DIAS 57; PULSE 79; RESP 20; TEMP 37.2; O2SAT 98
[2024-11-10 08:40] VITALS: BP 103/56; PULSE 80; RESP 18; TEMP 37.2; O2SAT 97
[2024-11-10] MEDS ORDERED: LIDOCAINE HCL 1% 10 MG/ML 10ML VIAL ONE (08:59)
[2024-11-10 13:15] VITALS: BP 110/66; PULSE 63; RESP 18; TEMP 36.5; O2SAT 100
[2024-11-10 16:29] VITALS: BP 128/72; PULSE 77; RESP 20; TEMP 37.2; O2SAT 98
[2024-11-10 18:05] LABS: HEMATOCRIT 31.7 % (42.0-52.0); HEMOGLOBIN 10.5 g/dL (14.0-18.0); MEAN CORPUSCULAR HGB CONC 33.2 g/dL (31.0-37.0); MEAN CORPUSCULAR VOLUME 93.3 fL (80.0-94.0); PLATELET 332 x1000/uL (130-400); RED CELL DISTRIBUTION WIDTH 16.7 % (11.6-14.6); WHITE BLOOD COUNT 11.6 x1000/uL (4.5-11.0)
[2024-11-10 18:13] LABS: CALCIUM 7.3 mg/dL (8.7-10.4); CARBON DIOXIDE 22 mEq/L (21-32); CHLORIDE 98 mEq/L (98-107); POTASSIUM 4.7 mEq/L (3.5-5.1); SODIUM 137 mEq/L (136-145)
[2024-11-10 18:17] LABS: GLUCOSE 154 mg/dL (70-105)
[2024-11-10 18:19] LABS: UREA NITROGEN BLOOD 96 mg/dL (9-23)
[2024-11-10 18:20] LABS: PHOSPHORUS 7.7 mg/dL (2.5-4.9)
[2024-11-10 18:25] LABS: CREATININE 16.6 mg/dL (0.6-1.3)
[2024-11-10 19:57] VITALS: BP 140/87; PULSE 74; RESP 20; TEMP 36.6; O2SAT 95
[2024-11-10] MEDS: VANCOMYCIN 2GM PMX (XELLIA) 400 ML IV SCH (20:52)
[2024-11-11] VITALS (14 sets, daily range): BP systolic 101–180; BP diastolic 50–86; PULSE 73–85; RESP 18–20; TEMP 36.114–37.3; O2SAT 97–100
[2024-11-11 07:48] LABS: BASOPHILS % 0.6 % (0.0-2.0); EOSINOPHILS % 1.9 % (0.0-5.0); HEMATOCRIT. 29.3 % (42.0-52.0); HEMOGLOBIN. 9.6 g/dL (14.0-18.0); LYMPHOCYTES % 10.5 % (20.0-50.0); MEAN CORPUSCULAR HEMOGLOBIN 30.4 pg (28.0-32.0); MEAN CORPUSCULAR HGB CONC 32.8 g/dL (31.0-37.0); MEAN CORPUSCULAR VOLUME 92.7 fL (80.0-94.0); MEAN PLATELET VOLUME 7.5 fl (7.4-10.4); MONOCYTES % 13.3 % (2.0-8.0); NEUTROPHILS % 73.7 % (40.0-76.0); PLATELET 292 x1000/uL (130-400); RED BLOOD CELL COUNT 3.16 mill/uL (4.7-6.1); RED CELL DISTRIBUTION WIDTH 16.5 % (11.6-14.6)
[2024-11-11 07:53] LABS: CARBON DIOXIDE 20 mEq/L (21-32); CHLORIDE 99 mEq/L (98-107); POTASSIUM 4.8 mEq/L (3.5-5.1); SODIUM 138 mEq/L (136-145)
[2024-11-11 07:54] LABS: CALCIUM 6.9 mg/dL (8.7-10.4)
[2024-11-11 07:59] LABS: GLUCOSE 92 mg/dL (70-105); UREA NITROGEN BLOOD 95 mg/dL (9-23)
[2024-11-11] MEDS ORDERED: KETAMINE HCL 50 MG/ML 10ML ONE (08:45)
[2024-11-11] MEDS ORDERED: HYDROMORPHONE HCL/PF 1MG/ML INJ IV PRN (09:00)
[2024-11-11] MEDS ORDERED: LABETALOL 5MG/ML 4ML INJ IV PRN (09:00)
[2024-11-11] MEDS ORDERED: HYDRALAZINE 20MG/ML VIAL IV PRN (09:00)
[2024-11-11] MEDS ORDERED: DEXAMETHASONE 4MG/ML 1ML VIAL IV PRN (09:00)
[2024-11-11] MEDS ORDERED: GLYCOPYRROLATE 0.2MG/ML VIAL 5ML IV PRN (09:00)
[2024-11-11] MEDS ORDERED: ONDANSETRON HCL 4MG/2ML INJ IV PRN (09:00)
[2024-11-11] MEDS ORDERED: BUPIVACAINE HCL/PF 0.5% (5MG/ML) 10ML ONE (09:01)
[2024-11-11] MEDS ORDERED: LIDOCAINE HCL 1% 10 MG/ML 10ML VIAL ONE (09:01)
[2024-11-11] MEDS ORDERED: PROPOFOL 200MG/20ML VIAL IV ONE (09:03)
[2024-11-11] MEDS ORDERED: MIDAZOLAM HCL 2 MG/2 ML VIAL ONE (09:04)
[2024-11-11 09:35] LABS: CREATININE 17.3 mg/dL (0.6-1.3)
[2024-11-11 09:39] LABS: PHOSPHORUS 8.3 mg/dL (2.5-4.9)
[2024-11-11] MEDS ORDERED: HEPARIN SODIUM 1,000 UNIT/1ML VIAL IV NR (10:15)
[2024-11-11] MEDS: HYDROMORPHONE HCL/PF 1MG/ML INJ IV PRN (10:32)
[2024-11-11] MEDS: CALCIUM ACETATE 667MG CAPSULE PO SCH (15:08)
[2024-11-12] VITALS (8 sets, daily range): BP systolic 120–163; BP diastolic 48–85; PULSE 76–85; RESP 16–20; TEMP 36.1–37.1; O2SAT 69–99
[2024-11-13] VITALS (7 sets, daily range): BP systolic 130–168; BP diastolic 61–85; PULSE 71–85; RESP 16–20; TEMP 36.1–36.8; O2SAT 98–99
[2024-11-13 06:44] LABS: BASOPHILS % 0.7 % (0.0-2.0); EOSINOPHILS % 2.7 % (0.0-5.0); HEMATOCRIT. 28.7 % (42.0-52.0); HEMOGLOBIN. 9.5 g/dL (14.0-18.0); MEAN CORPUSCULAR HEMOGLOBIN 31.1 pg (28.0-32.0); MEAN CORPUSCULAR HGB CONC 33.3 g/dL (31.0-37.0); MEAN CORPUSCULAR VOLUME 93.4 fL (80.0-94.0); MEAN PLATELET VOLUME 7.6 fl (7.4-10.4); MONOCYTES % 13.2 % (2.0-8.0); NEUTROPHILS % 72.4 % (40.0-76.0); PLATELET 349 x1000/uL (130-400); RED BLOOD CELL COUNT 3.07 mill/uL (4.7-6.1); RED CELL DISTRIBUTION WIDTH 16.1 % (11.6-14.6); WHITE BLOOD COUNT 10.7 x1000/uL (4.5-11.0)
[2024-11-13 06:53] LABS: CALCIUM 7.1 mg/dL (8.7-10.4)
[2024-11-13 07:19] LABS: CREATININE 17.5 mg/dL (0.6-1.3)
[2024-11-13] MEDS ORDERED: IPRATROPIUM/ALBUTEROL 0.5-3(2.5)MG/3ML NEB HHN PRN (18:30)
[2024-11-14] VITALS (10 sets, daily range): BP systolic 122–174; BP diastolic 61–85; PULSE 69–72; RESP 18–20; TEMP 36.2–36.8; O2SAT 73–100
[2024-11-14] MEDS: TRAMADOL 50MG TABLET PO PRN (11:15)
[2024-11-14] MEDS ORDERED: NALOXONE HCL 0.4MG/ML VIAL IV PRN (16:00)
[2024-11-14] MEDS: ACETAMINOPHEN 325MG TABLET PO PRN (17:30)
[2024-11-14 22:33] LABS: CHLORIDE 101 mEq/L (98-107); SODIUM 139 mEq/L (136-145)
[2024-11-14 22:34] LABS: CALCIUM 6.8 mg/dL (8.7-10.4); CARBON DIOXIDE 20 mEq/L (21-32)
[2024-11-14 22:39] LABS: GLUCOSE 168 mg/dL (70-105)
[2024-11-14 22:40] LABS: CREATINE KINASE MB FRACTION 1.6 ng/mL (0.5-3.6)
[2024-11-14 22:41] LABS: CREATINE KINASE 331 IU/L (46-171); CREATININE 16.8 mg/dL (0.6-1.3); PHOSPHORUS 7.3 mg/dL (2.5-4.9); UREA NITROGEN BLOOD 103 mg/dL (9-23)
[2024-11-14 23:04] LABS: BASOPHILS % 0.9 % (0.0-2.0); EOSINOPHILS % 2.4 % (0.0-5.0); HEMOGLOBIN. 9.3 g/dL (14.0-18.0); LYMPHOCYTES % 7.7 % (20.0-50.0); MEAN CORPUSCULAR HEMOGLOBIN 30.5 pg (28.0-32.0); MEAN CORPUSCULAR HGB CONC 33.3 g/dL (31.0-37.0); MEAN CORPUSCULAR VOLUME 91.6 fL (80.0-94.0); MEAN PLATELET VOLUME 7.4 fl (7.4-10.4); MONOCYTES % 13.2 % (2.0-8.0); NEUTROPHILS % 75.8 % (40.0-76.0); PLATELET 371 x1000/uL (130-400); RED BLOOD CELL COUNT 3.06 mill/uL (4.7-6.1); RED CELL DISTRIBUTION WIDTH 16.1 % (11.6-14.6); WHITE BLOOD COUNT 10.5 x1000/uL (4.5-11.0)
[2024-11-15] VITALS (7 sets, daily range): BP systolic 119–171; BP diastolic 58–84; PULSE 72–85; RESP 18–20; TEMP 36.3–36.7; O2SAT 98–100
[2024-11-15 06:45] LABS: CALCIUM 6.8 mg/dL (8.7-10.4); CARBON DIOXIDE 21 mEq/L (21-32); CHLORIDE 102 mEq/L (98-107); POTASSIUM 5.6 mEq/L (3.5-5.1); SODIUM 140 mEq/L (136-145)
[2024-11-15 06:50] LABS: GLUCOSE 109 mg/dL (70-105)
[2024-11-15 06:52] LABS: HEMATOCRIT. 27.5 % (42.0-52.0); HEMOGLOBIN. 9.2 g/dL (14.0-18.0); MEAN CORPUSCULAR HEMOGLOBIN 30.9 pg (28.0-32.0); MEAN CORPUSCULAR HGB CONC 33.4 g/dL (31.0-37.0); MEAN CORPUSCULAR VOLUME 92.4 fL (80.0-94.0); MEAN PLATELET VOLUME 7.5 fl (7.4-10.4); PLATELET 378 x1000/uL (130-400); RED BLOOD CELL COUNT 2.98 mill/uL (4.7-6.1); RED CELL DISTRIBUTION WIDTH 16.2 % (11.6-14.6); WHITE BLOOD COUNT 9.8 x1000/uL (4.5-11.0)
[2024-11-15 07:33] LABS: DIFFERENTIAL COMMENT 1
[2024-11-15 08:10] LABS: CREATININE 17.5 mg/dL (0.6-1.3); UREA NITROGEN BLOOD 111 mg/dL (9-23)
[2024-11-15] MEDS: CALCIUM ACETATE 667MG CAPSULE PO SCH (13:21)
[2024-11-15 20:27] LABS: ANISOCYTOSIS 1+; PLATELET ESTIMATE NORMAL
[2024-11-16] VITALS (10 sets, daily range): BP systolic 110–156; BP diastolic 54–76; PULSE 71–82; RESP 16–20; TEMP 36.5–36.7; O2SAT 95–99
[2024-11-16 06:37] LABS: HEMATOCRIT 28.4 % (42.0-52.0); HEMOGLOBIN 9.5 g/dL (14.0-18.0); MEAN CORPUSCULAR HGB CONC 33.5 g/dL (31.0-37.0); MEAN CORPUSCULAR VOLUME 92.5 fL (80.0-94.0); PLATELET 382 x1000/uL (130-400); RED BLOOD CELL COUNT 3.07 mill/uL (4.7-6.1); WHITE BLOOD COUNT 9.6 x1000/uL (4.5-11.0)
[2024-11-16 07:05] LABS: CHLORIDE 102 mEq/L (98-107); POTASSIUM 5.2 mEq/L (3.5-5.1); SODIUM 140 mEq/L (136-145)
[2024-11-16 07:06] LABS: CARBON DIOXIDE 20 mEq/L (21-32)
[2024-11-16 07:07] LABS: CALCIUM 7.4 mg/dL (8.7-10.4)
[2024-11-16 07:11] LABS: CREATINE KINASE 240 IU/L (46-171); GLUCOSE 101 mg/dL (70-105)
[2024-11-16 07:14] LABS: PHOSPHORUS 7.2 mg/dL (2.5-4.9)
[2024-11-16 07:29] LABS: UREA NITROGEN BLOOD 105 mg/dL (9-23)
[2024-11-16 07:30] LABS: CREATININE 16.9 mg/dL (0.6-1.3)
[2024-11-16] MEDS: FERROUS SULFATE 325MG TABLET PO SCH (22:43)
[2024-11-17] VITALS (11 sets, daily range): BP systolic 127–182; BP diastolic 61–106; PULSE 72–82; RESP 15–20; TEMP 36.4–36.8; O2SAT 97–99
[2024-11-17] MEDS: FERROUS SULFATE 325MG TABLET PO SCH (06:25)
[2024-11-17] MEDS: HEPARIN SODIUM 1,000 UNIT/1ML VIAL IV SCH ×2 (23:40→23:41)
[2024-11-18] VITALS: BP 130/58; PULSE 85; RESP 19; TEMP 36.4; O2SAT 97
[2024-11-18 04:00] VITALS: BP 143/67; PULSE 82; RESP 19; TEMP 36.4; O2SAT 99
[2024-11-18 08:00] VITALS: BP 151/64; PULSE 97; RESP 17; TEMP 36.4; O2SAT 97
[2024-11-18] MEDS: HYDROCODONE/ACETAMINOPHEN 5/325MG TABLET PO NR (09:26)
[2024-11-18 12:00] VITALS: BP 118/56; PULSE 71; RESP 18; TEMP 36.5; O2SAT 98
[2024-11-18] MEDS: GABAPENTIN 100MG CAPSULE PO SCH (14:16)
[2024-11-18 16:00] VITALS: BP 140/60; PULSE 72; RESP 16; TEMP 36.3; O2SAT 99
[2024-11-18 20:00] VITALS: BP 198/95; PULSE 72; RESP 20; TEMP 36.5; O2SAT 99
[2024-11-18] MEDS: HYDROCODONE/ACETAMINOPHEN 5/325MG TABLET PO PRN (22:21)
[2024-11-19] VITALS (10 sets, daily range): BP systolic 122–167; BP diastolic 54–84; PULSE 64–103; RESP 18–20; TEMP 35.7–37.1; O2SAT 96–100
[2024-11-19 10:14] LABS: BASOPHILS % 1.3 % (0.0-2.0); EOSINOPHILS % 2.5 % (0.0-5.0); HEMATOCRIT. 27.2 % (42.0-52.0); HEMOGLOBIN. 9.2 g/dL (14.0-18.0); LYMPHOCYTES % 11.1 % (20.0-50.0); MEAN CORPUSCULAR HEMOGLOBIN 31.1 pg (28.0-32.0); MEAN CORPUSCULAR HGB CONC 33.6 g/dL (31.0-37.0); MEAN CORPUSCULAR VOLUME 92.4 fL (80.0-94.0); MEAN PLATELET VOLUME 7.2 fl (7.4-10.4); MONOCYTES % 13.5 % (2.0-8.0); NEUTROPHILS % 71.6 % (40.0-76.0); PLATELET 353 x1000/uL (130-400); RED BLOOD CELL COUNT 2.95 mill/uL (4.7-6.1); RED CELL DISTRIBUTION WIDTH 16.1 % (11.6-14.6)
[2024-11-19 10:22] LABS: CHLORIDE 99 mEq/L (98-107)
[2024-11-19 10:23] LABS: CALCIUM 7.1 mg/dL (8.7-10.4)
[2024-11-19 12:41] LABS: CARBON DIOXIDE 19 mEq/L (21-32); CREATINE KINASE 151 IU/L (46-171); GLUCOSE 70 mg/dL (70-105); SODIUM 135 mEq/L (136-145)
[2024-11-19 12:47] LABS: CREATININE 19.5 mg/dL (0.6-1.3); PHOSPHORUS 8.8 mg/dL (2.5-4.9); POTASSIUM 6.5 mEq/L (3.5-5.1); UREA NITROGEN BLOOD 129 mg/dL (9-23)
[2024-11-19] MEDS ORDERED: DEXTROSE 50% WATER 50ML SYRINGE IV PRN (13:15)
[2024-11-19] MEDS: SODIUM ZIRCONIUM CYCLOSILICATE 10GM/PACKET PO SCH (14:12)
[2024-11-19] MEDS: SODIUM BICARBONATE 8.4% 50MEQ/50ML SYR IV SCH (14:13)
[2024-11-19 14:46] LABS: ERYTHROCYTE SEDIMENTATION RATE 66 mm/hr (0-20)
[2024-11-19] MEDS ORDERED: CALCIUM CHLORIDE 1GM/10ML SYR IV SCH (15:00)
[2024-11-19] MEDS ORDERED: HEPARIN 5000 UNITS/ML VIAL IV STA (15:01)
[2024-11-19] MEDS ORDERED: HEPARIN SODIUM 1,000 UNIT/1ML VIAL IV NR (15:30)
[2024-11-19] MEDS: ALBUTEROL (0.083%) 2.5MG/3ML NEB HHN SCH (16:06)
[2024-11-19] MEDS: CALCIUM CHLORIDE 1,000 MG in DEXT 5% WATER 90 ML IV SCH (16:18)
[2024-11-19] MEDS: DEXTROSE 50% WATER 50ML SYRINGE IV NR (16:34)
[2024-11-19] MEDS: INSULIN REGULAR (HUMULIN R) 1000UNITS/10ML VIAL IV NR (16:36)
[2024-11-19 20:44] LABS: BASOPHILS % 0.8 % (0.0-2.0); EOSINOPHILS % 0.6 % (0.0-5.0); HEMATOCRIT. 28.7 % (42.0-52.0); HEMOGLOBIN. 9.4 g/dL (14.0-18.0); LYMPHOCYTES % 8.4 % (20.0-50.0); MEAN CORPUSCULAR HEMOGLOBIN 30.3 pg (28.0-32.0); MEAN CORPUSCULAR HGB CONC 32.9 g/dL (31.0-37.0); MEAN CORPUSCULAR VOLUME 92.1 fL (80.0-94.0); MEAN PLATELET VOLUME 6.6 fl (7.4-10.4); MONOCYTES % 12.6 % (2.0-8.0); NEUTROPHILS % 77.6 % (40.0-76.0); PLATELET 437 x1000/uL (130-400); RED BLOOD CELL COUNT 3.12 mill/uL (4.7-6.1); RED CELL DISTRIBUTION WIDTH 15.7 % (11.6-14.6); WHITE BLOOD COUNT 13.1 x1000/uL (4.5-11.0)
[2024-11-19 20:52] LABS: POTASSIUM 5.3 mEq/L (3.5-5.1)
[2024-11-19 20:54] LABS: CALCIUM 8.2 mg/dL (8.7-10.4)
[2024-11-19 21:02] LABS: CREATININE 20.1 mg/dL (0.6-1.3)
[2024-11-20] VITALS (16 sets, daily range): BP systolic 82–183; BP diastolic 42–85; PULSE 77–98; RESP 18–21; TEMP 36.4–37.00296; O2SAT 97–100
[2024-11-20 07:00] LABS: BASOPHILS % 0.8 % (0.0-2.0); EOSINOPHILS % 1.5 % (0.0-5.0); HEMATOCRIT. 25.9 % (42.0-52.0); HEMOGLOBIN. 8.8 g/dL (14.0-18.0); MEAN CORPUSCULAR HEMOGLOBIN 31.1 pg (28.0-32.0); MEAN CORPUSCULAR HGB CONC 33.9 g/dL (31.0-37.0); MEAN CORPUSCULAR VOLUME 91.7 fL (80.0-94.0); MEAN PLATELET VOLUME 7.2 fl (7.4-10.4); MONOCYTES % 14.5 % (2.0-8.0); NEUTROPHILS % 74.2 % (40.0-76.0); PLATELET 374 x1000/uL (130-400); RED BLOOD CELL COUNT 2.82 mill/uL (4.7-6.1); RED CELL DISTRIBUTION WIDTH 16.1 % (11.6-14.6); WHITE BLOOD COUNT 10.5 x1000/uL (4.5-11.0)
[2024-11-20 07:11] LABS: CARBON DIOXIDE 20 mEq/L (21-32); CHLORIDE 101 mEq/L (98-107); SODIUM 137 mEq/L (136-145)
[2024-11-20 07:12] LABS: CALCIUM 7.8 mg/dL (8.7-10.4)
[2024-11-20 07:17] LABS: GLUCOSE 152 mg/dL (70-105)
[2024-11-20 07:56] LABS: CREATININE 21.3 mg/dL (0.6-1.3); POTASSIUM 6.2 mEq/L (3.5-5.1); UREA NITROGEN BLOOD 141 mg/dL (9-23)
[2024-11-20 07:57] LABS: PHOSPHORUS 8.5 mg/dL (2.5-4.9)
[2024-11-20] MEDS: SODIUM BICARBONATE 8.4% 50MEQ/50ML SYR IV NR (08:46)
[2024-11-20] MEDS: INSULIN REGULAR (HUMULIN R) 1000UNITS/10ML VIAL IV NR (08:47)
[2024-11-20] MEDS: DEXTROSE 50% WATER 50ML SYRINGE IV NR (08:47)
[2024-11-20] MEDS ORDERED: NALOXONE HCL 0.4MG/ML VIAL IV PRN (10:45)
[2024-11-20] MEDS ORDERED: HYDROCODONE/ACETAMINOPHEN 5/325MG TABLET PO PRN (10:45)
[2024-11-20] MEDS: BLOOD SUGAR DIAGNOSTIC STRIP TEST SCH (12:40)
[2024-11-20] MEDS ORDERED: DEXTROSE 50% WATER 50ML SYRINGE IV PRN (12:45)
[2024-11-20] MEDS: INSULIN LISPRO 100 UNITS/ML SUBCUT SCH (13:40)
[2024-11-20] MEDS: HEPARIN SODIUM 1,000 UNIT/1ML VIAL IV SCH (15:13)
[2024-11-20] MEDS: HYDROCODONE/ACETAMINOPHEN 10/325MG TABLET PO PRN (19:06)
[2024-11-21] VITALS (21 sets, daily range): BP systolic 110–171; BP diastolic 44–84; PULSE 76–88; RESP 13–20; TEMP 36.4–37.1; O2SAT 94–100
[2024-11-21 08:56] LABS: HEMATOCRIT. 24.6 % (42.0-52.0); HEMOGLOBIN. 8.4 g/dL (14.0-18.0); MEAN CORPUSCULAR HEMOGLOBIN 31.3 pg (28.0-32.0); MEAN CORPUSCULAR HGB CONC 33.9 g/dL (31.0-37.0); MEAN CORPUSCULAR VOLUME 92.1 fL (80.0-94.0); MEAN PLATELET VOLUME 6.9 fl (7.4-10.4); PLATELET 322 x1000/uL (130-400); RED BLOOD CELL COUNT 2.67 mill/uL (4.7-6.1); RED CELL DISTRIBUTION WIDTH 15.7 % (11.6-14.6); WHITE BLOOD COUNT 9.6 x1000/uL (4.5-11.0)
[2024-11-21 09:14] LABS: DIFFERENTIAL COMMENT 1; PROTHROMBIN TIME 10.9 sec (9.6-11.0)
[2024-11-21 09:19] LABS: POTASSIUM 5.7 mEq/L (3.5-5.1)
[2024-11-21 09:20] LABS: CALCIUM 7.8 mg/dL (8.7-10.4)
[2024-11-21] MEDS ORDERED: FENTANYL CITRATE/PF 50MCG/ML 2ML VIAL ONE (09:28)
[2024-11-21] MEDS ORDERED: IOHEXOL-300 100 ML BOTTLE ONE (09:32)
[2024-11-21] MEDS ORDERED: LIDOCAINE HCL 1% 10 MG/ML 10ML VIAL ONE (09:32)
[2024-11-21] MEDS: CEFAZOLIN 1000MG PREMIX 50 ML IV SCH (10:44)
[2024-11-21] MEDS: FENTANYL CITRATE/PF 50MCG/ML 2ML VIAL IV ONE (10:48)
[2024-11-21 11:03] LABS: ANISOCYTOSIS 1+; PLATELET ESTIMATE NORMAL
[2024-11-21] MEDS ORDERED: MIDAZOLAM HCL 2 MG/2 ML VIAL ONE (11:03)
[2024-11-21] MEDS: MIDAZOLAM HCL 2 MG/2 ML VIAL IV ONE (11:19)
[2024-11-21] MEDS: ALTEPLASE 2MG/VIAL ITC SCH (11:45)
[2024-11-22] VITALS (14 sets, daily range): BP systolic 78–199; BP diastolic 48–78; PULSE 74–86; RESP 16–20; TEMP 36.16956–36.9; O2SAT 95–100
[2024-11-22] MEDS: PANTOT AC/MIN OIL/PET HY-PHL OINT (AQUAPHOR) TOP SCH (15:05)
[2024-11-23] VITALS (15 sets, daily range): BP systolic 113–150; BP diastolic 51–76; PULSE 72–86; RESP 16–20; TEMP 36.44736–37; O2SAT 97–100
[2024-11-23] MEDS: DOCUSATE SODIUM 100MG CAPSULE PO PRN (03:04)
[2024-11-23 06:14] LABS: BASOPHILS % 0.9 % (0.0-2.0); EOSINOPHILS % 2.6 % (0.0-5.0); HEMOGLOBIN. 8.8 g/dL (14.0-18.0); LYMPHOCYTES % 7.1 % (20.0-50.0); MEAN CORPUSCULAR HEMOGLOBIN 30.8 pg (28.0-32.0); MEAN CORPUSCULAR HGB CONC 33.7 g/dL (31.0-37.0); MEAN CORPUSCULAR VOLUME 91.4 fL (80.0-94.0); MEAN PLATELET VOLUME 7.5 fl (7.4-10.4); MONOCYTES % 14.1 % (2.0-8.0); NEUTROPHILS % 75.3 % (40.0-76.0); PLATELET 317 x1000/uL (130-400); RED BLOOD CELL COUNT 2.85 mill/uL (4.7-6.1); WHITE BLOOD COUNT 11.8 x1000/uL (4.5-11.0)
[2024-11-23 06:19] LABS: POTASSIUM 5.8 mEq/L (3.5-5.1)
[2024-11-23 06:21] LABS: CALCIUM 8.1 mg/dL (8.7-10.4)
[2024-11-23] MEDS: SODIUM ZIRCONIUM CYCLOSILICATE 10GM/PACKET PO SCH (11:14)
[2024-11-24] VITALS: BP 139/65; PULSE 82; RESP 20; TEMP 36.8; O2SAT 98
[2024-11-24 04:00] VITALS: BP 106/51; PULSE 85; RESP 20; TEMP 36.7; O2SAT 98
[2024-11-24 07:58] VITALS: BP 113/56; PULSE 85; RESP 18; TEMP 37.2; O2SAT 96
[2024-11-24] MEDS: MAGNESIUM/ALUMINUM HYDROXIDE/SIMETHICONE 30ML UDC PO PRN (10:02)
[2024-11-24 12:18] VITALS: BP 137/59; PULSE 82; RESP 18; TEMP 37.3; O2SAT 97
[2024-11-24] MEDS: LIDOCAINE HCL 4% CREAM 76GM TUBE TP SCH (12:38)
[2024-11-24 15:55] VITALS: BP 118/52; PULSE 86; RESP 20; TEMP 37; O2SAT 99
[2024-11-24 20:00] VITALS: BP 143/60; PULSE 81; RESP 20; TEMP 36.9; O2SAT 99
[2024-11-25] VITALS (10 sets, daily range): BP systolic 63–157; BP diastolic 43–72; PULSE 71–91; RESP 18–20; TEMP 36.6696–37.3; O2SAT 95–100
[2024-11-25] MEDS ORDERED: HEPARIN SODIUM 1,000 UNIT/1ML VIAL IV SCH (09:00)
[2024-11-26 04:00] VITALS: BP 128/59; PULSE 82; RESP 18; TEMP 36.9; O2SAT 97
[2024-11-26 08:00] VITALS: BP 122/57; PULSE 85; RESP 20; TEMP 36.4; O2SAT 98
[2024-11-26] MEDS ORDERED: LORAZEPAM 0.5MG TABLET PO NR (09:15)
[2024-11-26 12:00] VITALS: BP 118/56; PULSE 76; RESP 18; TEMP 36.3; O2SAT 97
[2024-11-26 16:00] VITALS: BP 130/66; PULSE 76; RESP 18; TEMP 36.3; O2SAT 98
[2024-11-26 20:00] VITALS: BP 142/64; PULSE 78; RESP 20; TEMP 36.7; O2SAT 98
[2024-11-27] VITALS (14 sets, daily range): BP systolic 100–161; BP diastolic 52–91; PULSE 72–86; RESP 18–20; TEMP 36.3–37.1; O2SAT 95–99
[2024-11-28] VITALS: BP 121/57; PULSE 81; RESP 18; TEMP 36.7; O2SAT 100
[2024-11-28 04:00] VITALS: BP 109/58; PULSE 83; RESP 18; TEMP 36.4; O2SAT 98
[2024-11-28 07:59] VITALS: BP 104/46; PULSE 81; RESP 18; TEMP 37.1; O2SAT 95
[2024-11-28] MEDS ORDERED: NALOXONE HCL 0.4MG/ML VIAL IV PRN (09:30)
[2024-11-28] MEDS ORDERED: HYDROCODONE/ACETAMINOPHEN 5/325MG TABLET PO PRN (10:15)
[2024-11-28 11:35] VITALS: BP 159/99; PULSE 87; RESP 18; TEMP 36.8; O2SAT 98
[2024-11-28] MEDS: HYDROCODONE/ACETAMINOPHEN 10/325MG TABLET PO PRN (11:46)
[2024-11-28] MEDS: LIDOCAINE HCL 1% 10 MG/ML 10ML VIAL ONE (14:13)
[2024-11-28 16:15] VITALS: BP 172/83; PULSE 80; RESP 21; TEMP 36.3; O2SAT 98
[2024-11-28 20:24] VITALS: BP 119/61; PULSE 78; RESP 20; TEMP 37.1; O2SAT 98
== END 2024-11-28 22:00 | DRG 622 ==
LOC: ER 09:09 → 7WST 10:30 → 7EST 11-16 18:22 → 7WST 11-19 21:56
PROVIDERS: ADMIT Hospitalist; ATTEND Hospitalist
PROC: 02HV33Z Insertion of Infusion Device into Superior Vena Cava, Percutaneous Approach (ICD-10-PCS; 2024-11-03)
PROC: B548ZZA Ultrasonography of Superior Vena Cava, Guidance (ICD-10-PCS; 2024-11-03)
PROC: 5A1D70Z Performance of Urinary Filtration, Intermittent, Less than 6 Hours Per Day (ICD-10-PCS; 2024-11-03)
PROC: 0JH63XZ Insertion of Tunneled Vascular Access Device into Chest Subcutaneous Tissue and Fascia, Percutaneous Approach (ICD-10-PCS; 2024-11-03)
PROC: 5A1D70Z Performance of Urinary Filtration, Intermittent, Less than 6 Hours Per Day (ICD-10-PCS; 2024-11-05)
PROC: 5A1D70Z Performance of Urinary Filtration, Intermittent, Less than 6 Hours Per Day (ICD-10-PCS; 2024-11-06)
PROC: 5A1D70Z Performance of Urinary Filtration, Intermittent, Less than 6 Hours Per Day (ICD-10-PCS; 2024-11-07)
PROC: 5A1D70Z Performance of Urinary Filtration, Intermittent, Less than 6 Hours Per Day (ICD-10-PCS; 2024-11-09)
PROC: 05HP33Z Insertion of Infusion Device into Right External Jugular Vein, Percutaneous Approach (ICD-10-PCS; 2024-11-10)
PROC: B543ZZA Ultrasonography of Right Jugular Veins, Guidance (ICD-10-PCS; 2024-11-10)
PROC: 0JBG0ZZ Excision of Right Lower Arm Subcutaneous Tissue and Fascia, Open Approach (ICD-10-PCS; 2024-11-11)
PROC: 5A1D70Z Performance of Urinary Filtration, Intermittent, Less than 6 Hours Per Day (ICD-10-PCS; 2024-11-11)
PROC: 5A1D70Z Performance of Urinary Filtration, Intermittent, Less than 6 Hours Per Day (ICD-10-PCS; 2024-11-14)
PROC: 5A1D70Z Performance of Urinary Filtration, Intermittent, Less than 6 Hours Per Day (ICD-10-PCS; 2024-11-15)
PROC: 5A1D70Z Performance of Urinary Filtration, Intermittent, Less than 6 Hours Per Day (ICD-10-PCS; 2024-11-17)
PROC: 5A1D70Z Performance of Urinary Filtration, Intermittent, Less than 6 Hours Per Day (ICD-10-PCS; 2024-11-19)
PROC: 5A1D70Z Performance of Urinary Filtration, Intermittent, Less than 6 Hours Per Day (ICD-10-PCS; 2024-11-20)
PROC: 057Y3ZZ Dilation of Upper Vein, Percutaneous Approach (ICD-10-PCS; principal; 2024-11-21)
PROC: 037Y3ZZ Dilation of Upper Artery, Percutaneous Approach (ICD-10-PCS; 2024-11-21)
PROC: B51W1ZZ Fluoroscopy of Dialysis Shunt/Fistula using Low Osmolar Contrast (ICD-10-PCS; 2024-11-21)
PROC: B51N1ZZ Fluoroscopy of Left Upper Extremity Veins using Low Osmolar Contrast (ICD-10-PCS; 2024-11-21)
PROC: 5A1D70Z Performance of Urinary Filtration, Intermittent, Less than 6 Hours Per Day (ICD-10-PCS; 2024-11-22)
PROC: 5A1D70Z Performance of Urinary Filtration, Intermittent, Less than 6 Hours Per Day (ICD-10-PCS; 2024-11-23)
PROC: 5A1D70Z Performance of Urinary Filtration, Intermittent, Less than 6 Hours Per Day (ICD-10-PCS; 2024-11-25)
PROC: 5A1D70Z Performance of Urinary Filtration, Intermittent, Less than 6 Hours Per Day (ICD-10-PCS; 2024-11-27)
DX: E87.70 Fluid overload, unspecified (principal); G82.50 Quadriplegia, unspecified; N18.6 End stage renal disease; Z68.43 Body mass index [BMI] 50.0-59.9, adult; L03.113 Cellulitis of right upper limb; I13.11 Hypertensive heart and chronic kidney disease without heart failure, with stage 5 chronic kidney disease, or end stage renal disease; E87.5 Hyperkalemia; I87.2 Venous insufficiency (chronic) (peripheral); S80.822A Blister (nonthermal), left lower leg, initial encounter; E11.51 Type 2 diabetes mellitus with diabetic peripheral angiopathy without gangrene; Z99.2 Dependence on renal dialysis; G89.4 Chronic pain syndrome; E66.01 Morbid (severe) obesity due to excess calories; D72.810 Lymphocytopenia; E11.22 Type 2 diabetes mellitus with diabetic chronic kidney disease; D63.8 Anemia in other chronic diseases classified elsewhere; E83.51 Hypocalcemia; R53.81 Other malaise; E78.5 Hyperlipidemia, unspecified; S50.11XA Contusion of right forearm, initial encounter; M48.02 Spinal stenosis, cervical region; R26.9 Unspecified abnormalities of gait and mobility; X58.XXXA Exposure to other specified factors, initial encounter; M50.323 Other cervical disc degeneration at C6-C7 level; E83.39 Other disorders of phosphorus metabolism; R34 Anuria and oliguria; Y93.89 Activity, other specified; Y92.89 Other specified places as the place of occurrence of the external cause; Y99.9 Unspecified external cause status; Y99.8 Other external cause status; Z91.199 Patient's noncompliance with other medical treatment and regimen due to unspecified reason; Z91.81 History of falling
CPT/HCPCS: 36415; 36556; 36905; 71045; 76937; 80048; 80061; 80202; 82270; 82550; 82553; 82607; 82728; 82746; 82962; 83036; 83540; 83550; 83735; 83880; 84100; 84132; 84145; 84439; 84443; 84484; 85025; 85027; 85651; 86705; 86709; 87070; 87075; 87077; 87186; 87340; 88304; 90935; 93005; 93922; 93970; 93971; 94070; 94640; 97110; 97116; 97163; 97164; 97166; 97168; 97530; 97535; 99152; 99153; 99291; A4606; A6449; C1725; C1752; C1766; C1769; C1887; J0610; J0665; J0690; J1171; J1644; J1650; J1815; J1940; J2003; J2250; J2470; J2704; J2997; J3010; J3370; J3490; J7060; Q9967; G0500